=== PATIENT | male | born 1960 | race Caucasian/White ===

== ENCOUNTER 2019-06-12 14:18 | Outpatient (CLI) | payer BC ==
--- NOTE | 2019-06-12 16:02 | MRI ---
MRI lumbar spine without and with gadolinium contrast HISTORY: Low back pain. Radiculopathy. Prior surgery. FINDINGS: Radiographs are not available for direct correlation. Based on the partially visualized low est ribs and the position of the conus medullaris, the transitional vertebra at the lumbosacral junction will be designated as the fifth lumbar level, with the remainder number accordingly. There i s fat intensity associated with the lower filum terminale without significant expansion. The left adrenal gland is partially visualized, with a 2.0 cm rounded lesion favored to arise from it . Incompletely evaluated. T12-L1, L1-2, L2-3, L3-4: Central canal and neural foramina are patent. Osseous hypertrophy of the fa cets. Disc hydration and heights are maintained. L4-5: Complete loss of disc space height. There is 0.4 cm spondylolisthesis. Mild posterior disc bulg e. Thecal sac is patent. Far right lateral component of the disc bulge encroaches into the right neural foramen. Right laminectomy with enhancing scar tissue. There is also osteophytosis. Severe sinan ateral foraminal stenoses, right greater than left. L5-S1: Discogenic endplate changes most pronounced in the bone marrow at this level. Complete loss of disc space height. Left laminectomy with enhancing scar tissue. Mild disc bulge. Thecal sac is patent. Osteophytosis with severe right and very severe left foraminal stenoses. IMPRESSION: Degenerative changes of the lower lumbar spine including severe stenoses of the neural fo ramina at the lowest 2 levels. Postoperative changes lower lumbar spine. Partially visualized left adrenal gland mass. Please consider dedicated CT of the adrenal glands, wit hout and with IV contrast, for better characterization.
== END 2019-06-12 14:19 | disposition home or self-care (01) ==
LOC: TBSIIMAG 14:18
PROVIDERS: ATTEND Neurological Surgery
DX: M47.26 Other spondylosis with radiculopathy, lumbar region (principal); M48.061 Spinal stenosis, lumbar region without neurogenic claudication; Z98.890 Other specified postprocedural states
CPT/HCPCS: 72158; 82565